=== PATIENT | male | born 1950 | race African-American/Black ===

== ENCOUNTER → 2020-10-04 | Outpatient (CLI) | payer MEDICARE, MEDICAID ==
[~2020-10-04] MED LIST: ALLO300T2 PO; AMLO10TA80 PO; FURO20TA4 PO; LORA10TA7 PO; LOSA100T32 PO; METO-385 PO; PARO40TA75 PO; TAMS-11 PO
== END | disposition home or self-care (01) ==
LOC: LAB 14:14
PROVIDERS: ATTEND Orthopaedic Surgery
DX: Z01.812 Encounter for preprocedural laboratory examination (principal); Z20.828 Contact with and (suspected) exposure to other viral communicable diseases
CPT/HCPCS: 87426

== ENCOUNTER → 2020-10-05 | Day surgery (SDC) | payer MEDICARE, MEDICAID ==
[~2020-10-05] VITALS: Ht 170.2 cm; Wt 83.9 kg
[~2020-10-05] MED LIST changes: +BACITRACIN 50,000 UNITS/VIAL ONE; +BUPIVACAINE/EPINEPH/PF 0.25%/0.0005 10ML ONE; +LACTATED RINGERS 1,000 ML IV SCH; +MORPHINE SULFATE/PF 1MG/ML 10ML AMP ONE; +VANCOMYCIN HCL 1 GM/VIAL ONE
[2020-10-05 07:26] LABS: CLARITY URINE CLEAR (CLEAR); COLOR URINE DARK YELLOW (YELLOW); KETONES URINE TRACE (NEGATIVE); LEUKOCYTE ESTERASE URINE NEGATIVE (NEGATIVE); NITRITE URINE NEGATIVE (NEGATIVE); OCCULT BLOOD URINE TRACE (NEGATIVE); PROTEIN URINE NEGATIVE (NEGATIVE); SPECIFIC GRAVITY URINE 1.025 (1.005-1.030); UROBILINOGEN URINE 0.2 E.U./dL (0.2-1.0)
== END | disposition home or self-care (01) ==
LOC: OR 05:43
PROVIDERS: ATTEND Orthopaedic Surgery
DX: M16.11 Unilateral primary osteoarthritis, right hip (principal); Z53.8 Procedure and treatment not carried out for other reasons; M10.9 Gout, unspecified; I10 Essential (primary) hypertension; J45.909 Unspecified asthma, uncomplicated; I48.91 Unspecified atrial fibrillation; F41.9 Anxiety disorder, unspecified; N40.0 Benign prostatic hyperplasia without lower urinary tract symptoms; E66.9 Obesity, unspecified; I25.10 Atherosclerotic heart disease of native coronary artery without angina pectoris; Z87.891 Personal history of nicotine dependence; Z96.643 Presence of artificial hip joint, bilateral; Z79.899 Other long term (current) drug therapy; Z98.890 Other specified postprocedural states
CPT/HCPCS: 36415; 81003; 86850; 86900; 86901; 93005; J3490; J0171; J2274; J3370